=== PATIENT | female | born 2000 | race Caucasian/White ===

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

== ENCOUNTER 2022-11-02 22:24 | Emergency (ER) | payer OTHER ==
[~2022-11-02] VITALS: Ht 172.7 cm; Wt 90.9 kg
== END 2022-11-02 23:48 | disposition home or self-care (01) ==
LOC: ED 22:24
DX: R51.9 Headache, unspecified (principal); F41.9 Anxiety disorder, unspecified; F43.10 Post-traumatic stress disorder, unspecified
CPT/HCPCS: 96374; 96375; 99283-25; J1200; J1885; J2765